=== PATIENT | female | born 1950 | race Caucasian/White ===

== ENCOUNTER 2016-12-28 19:22 | Emergency (ER) | payer OTHER ==
[~2016-12-28] VITALS: Ht 154.9 cm; Wt 72.0 kg
[2016-12-28 19:28] VITALS: BP 121/83; PULSE 85; RESP 16; O2SAT 99
--- NOTE | 2016-12-28 20:28 | ED.REPORT ---
HPI-Abd Pain F 40 and Over Date of Service Dec 28, 2016 ED Provider: Fly Elaine MD Pt is a 66 year old female presenting to the ED complaining of sharp LLQ abdominal pain worsened today after eating lunch. She reports that [place] and began having slight abdominal irritation which has significantly worsened since returning home. Associated symptoms include nausea and intermittent diarrhea. Denies vomiting, fever, any change in bowel habits, dysuria, bloody diarrhea, or any recent sick contacts. She reports that it feels like she has gas. Nursing Notes Stated Complaint: LEFT SIDE ABDOMINAL PAIN/SENT FROM URGENT CARE Chief Complaint: Female Abdominal Pain Nursing Notes Reviewed: Yes Allergies: Coded Allergies: tetracycline (Unverified Allergy, Unknown, 12/28/16) Scheduled Levofloxacin (Levaquin) 500 Mg Tablet 500 MG PO DAILY Metronidazole (Metronidazole) 500 Mg Tablet 500 MG PO TID Scheduled PRN Hydrocodone-Acetaminophen 5-325 mg (Hydrocodone-Acetaminophen 5-325 mg) 1 Each Tablet 1 TABLET PO Q4H PRN PRN For Pain General Time Seen by MD: 20:02 Chief Complaint Abdominal pain Hx Obtained From: Patient Arrived By: Walk-in Sudden in Onset?: No Onset Occurred: 9 - 12 hours ago Symptom Duration: Since onset Progression since Onset: Intermittent Location: : LLQ Quality: Painful Severity: Current: Moderate Severity: Maximum: Severe Recent Healthcare: No recent doctor visit, No recent hospitalization Similar Sx Previous: No Past Medical History Past Medical History Hx of UTI Past Surgical History endoscopy Reports: Hysterectomy, Tonsillectomy Smoking History Never Smoker Social History Alcohol Use: 1-3 per day (A glass of wine or a beer daily) Ambulatory Status Independent Review of Systems Constitutional: Denies: Fever GI: Reports: Abdominal pain, Diarrhea, Nausea, Denies: Hematochezia, Vomiting Female: Denies: Dysuria Complete sys rev & neg: except as marked. Physical Exam Vital Signs Vital Signs (First) Date Time Temp Pulse Resp B/P Pulse Ox O2 Delivery O2 Flow Rate FiO2 12/28/16 19:28 36.6 85 16 121/83 99 Room Air Initial VS: Reviewed Head / Eyes: Atraumatic, Normocephalic, PERRL ENT: Mucous membranes moist, Conjunctiva normal, No scleral icterus Extremities: Vascular intact, Neuro intact, No swelling, No tenderness Skin: Warm, Dry, No cyanosis Neurologic: Alert, Oriented, Nonfocal Psychiatric: Mood/affect normal, Behavior normal, Normal thought content General/Constitutional: Awake, Alert, No acute distress, Well appearing Respiratory / Chest: Breath sounds NL, Breath sounds = bilat, No respiratory distress, No rales, No rhonchi, No wheezing, No stridor Cardiovascular: Heart rate NL, Regular rhythm, Heart sounds NL, No gallop, No murmurs, No rubs Abdomen: Atraumatic, Soft, BS normoactive Tenderness/Guarding/Rebound: Positive: Guarding involuntary, Tender LLQ... ( Moderate), Tender periumbilical (Left) Back: Atraumatic, Inspection NL, No CVA tenderness Interpretation & Diagnostics Lab Results Interpretation Result Diagram: 12/28/16204412/28/162044 Test 12/28/16 20:36 12/28/16 20:45 Urine Color Yellow (YELLOW) Urine Appearance Clear (CLEAR,HAZY) Urine pH 7.5 (5.0-8.0) Urine Specific Pray 1.010 (1.003-1.035) Urine Protein Negativemg/dL (NEG,TRACE) Urine Glucose (UA) Negativemg/dL (NEGATIVE) Urine Ketones Negativemg/dL (NEGATIVE) Urine Occult Blood Negative (NEGATIVE) Urine Nitrite Negative (NEGATIVE) Urine Bilirubin Negative (NEGATIVE) Urine Urobilinogen Normalmg/dL (NORMAL) Urine Leukocyte Esterase Negative (NEGATIVE) Urine RBC 0-2/hpf (0-2) Urine WBC 0-5/hpf (0-5) Urine Epithelial Cells Few/hpf (NONE-MOD) Urine Crystals None seen (NONE SEEN) Urine Bacteria Few/hpf (NONE-FEW) Urine Hyaline Casts None/lpf (NONE) Urine Granular Casts None seen (NONE SEEN) Urine Waxy Casts None seen (NONE SEEN) Urine Red Blood Cell Casts None seen (NONE SEEN) Urine White Blood Cell Casts None seen (NONE SEEN) Urine Mucus None seen (None Seen) Urine Trichomonas None seen (NONE SEEN) Urine Yeast None (NONE SEEN) Urinalysis Comment None Urine Culture Reflexed Not indicated Hold Urine Received (Received) White Blood Count 12.2th/mm3 (3.8-10.1) Red Blood Count 4.58mil/mm3 (3.90-5.20) Hemoglobin 13.9g/dL (12.0-15.6) Hematocrit 41.2% (35.0-46.0) Mean Corpuscular Volume 90.0fL (81-100) Mean Corpuscular Hemoglobin 30.3pg (27.0-35.0) Mean Corpuscular Hemoglobin Concent 33.7% (32.0-37.0) Red Cell Distribution Width 13.3% (12.3-15.4) Platelet Count 268bil/L (150-400) Neutrophils (%) (Auto) 72.4% (40-74) Lymphocytes (%) (Auto) 16.3% (14-46) Monocytes (%) (Auto) 10.5% (4-12) Eosinophils (%) (Auto) 0.4% (0-5) Basophils (%) (Auto) 0.2% (0-3) Sodium Level 139mEq/L (134-144) Potassium Level 4.3mEq/L (3.5-5.2) Chloride Level 101mEq/L (97-108) Carbon Dioxide Level 23mmol/L (18-29) Blood Urea Nitrogen 15mg/dL (8-27) Creatinine 0.80mg/dL (0.57-1.00) Estimat Glomerular Filtration Rate 103mL/min (>59) Glucose Level 107mg/dL (60-99) Calcium Level 8.9mg/dL (8.5-10.1) Magnesium Level 2.0mg/dL (1.6-2.6) Total Bilirubin 0.5mg/dL (0.0-1.2) Aspartate Amino Transf (AST/SGOT) 17U/L (0-50) Alanine Aminotransferase (ALT/SGPT) 16U/L (0-32) Alkaline Phosphatase 50U/L (25-165) Total Protein 6.9g/dL (6.4-8.4) Albumin 3.9g/dL (3.4-5.0) Lipase 52U/L (13-60) CT Abd / Pelvis Interpretation IMPRESSION: 1. Acute diverticulitis as above. No intra-abdominal abscess or pneumoperitoneum to suggest perforation. This finding was discussed with Dr. Elaine at 10:14 PM on 12/28/16. 2. Normal appendix. Dictated by: Esha Moreno M.D. on 12/28/2016 at 22:09 Study type: Abdominal CT IV contrast Interpretation / Wet Read by: Interpret - Radiologist, Discussed w radiologist Re-Eval/Medical Decision Med Decision/Clinical Course Well-appearing healthy 66-year-old with acute diverticulitis. She is able tolerate by mouth's pain is well-controlled in the emergency department. The patient interested in outpatient treatment of possible. We have started her on Levaquin and Flagyl will discharge her home with instructions to return if worse or if not improved in 48 hours Re-Evaluation/Progress #1: Time of Eval: 20:52 Patient Status: Condition improved Re-Evaluation/Progress Note: Performed physical exam and discussed past medical history. Re-Evaluation/Progress #2: Time of Eval: 22:47 Patient Status: Condition improved Re-Evaluation/Progress Note: Discussed CT results and plan for discharge. Pt understands and agrees. Counseled Regarding: Diagnosis, Lab results, Need for follow-up, When/why to return to ED Discharge & Departure Primary Impression: Diverticulitis Diverticulitis site: large intestine Diverticulitis bleeding: without bleeding Diverticulitis complication: without perforation or abscess Qualified Code: K57.32 - Diverticulitis of large intestine without perforation or abscess without bleeding Disposition: Home Discharge Condition All VS Reviewed: Yes Condition: Improved Patient Instructions: Diverticulitis (ED) Additional Instructions: ED evaluation today included interview, exam, labs and CT. Your CT scan today confirmed diverticulitis. We have started levaquin and metronidazole to cover the infection. Take these as prescribed. May use hydrocodone/apap 1-2 every 4 hours as needed for pain. Follow a clear liquid diet until you feel better. Stay away from foods with small seeds which can irritate the diverticulitis, even after you feel better. follow up with primary care in 3-5 days. Return to ED for increasing pain, fevers, or shaking chills, frequent vomiting or if not improved in 48 hours Referrals: Danny Galindo ND (PCP) Soumya Attestation Portions of this note were transcribed by Carleen Barker. I, Dr. Elaine personally performed the history, physical exam and medical decision-making; I reviewed and confirmed the accuracy of the information in the transcribed note. Signed by : Soumya Horner, 12/28/2016 at 2313. copies to: Danny Galindo ND, Donald L MD Dec 28, 2016 20:27 CARLEEN BARKER Dec 28, 2016 20:30
[2016-12-28 21:04] LABS: BASOPHILS % (AUTO) 0.2 % (0-3); EOSINOPHILS % (AUTO) 0.4 % (0-5); MONOCYTES % (AUTO) 10.5 % (4-12); Mean Corpuscular Hemoglobin 30.3 pg (27.0-35.0); NEUTROPHILS % (AUTO) 72.4 % (40-74); Platelet Count 268 bil/L (150-400)
[2016-12-28] MEDS ORDERED: Ondansetron 2 mg/mL 2 mL Inj IVPUSH PRN (21:05)
[2016-12-28] MEDS ORDERED: 0.9% Sodium Chloride 1,000 ML IV ONE (21:05)
[2016-12-28] MEDS: HYDROmorphone 0.5 mg/0.5 mL iSecure Syringe IVPUSH PRN ×2 (21:26→23:10)
[2016-12-28 22:03] LABS: APPEARANCE,URINE CLEAR (CLEAR,HAZY); COLOR,URINE YELLOW (YELLOW)
[2016-12-28 22:04] LABS: OCCULT BLOOD,URINE NEGATIVE (NEGATIVE); PH,URINE 7.5 (5.0-8.0); UROBILINOGEN,URINE NORMAL (NORMAL)
--- NOTE | 2016-12-28 22:18 | DRSVH ---
PROCEDURE: CT ABDOMEN AND PELVIS WITH CONTRAST ([id number]) INDICATIONS: llq abd pain TECHNIQUE: After the administration of intravenous contrast, 5 mm thick sections acquired from the diaphragm to the symphysis. 5 mm coronal and sagittal reformats were acquired. For radiation dose reduction, the following was used: automated exposure control, adjustment of mA and/or kV according to patient siz e. COMPARISON: None. FINDINGS: Image quality: Excellent. ABDOMEN: Lung bases: Lung bases are clear. Heart size is normal. Solid organs: Liver and spleen are normal in size and enhancement. Gallbladder is is unremarkable. Biliary system is non dilated. Pancreas enhances normally. No adrenal nodules. Kidneys demonstrat e normal size and enhancement, without hydronephrosis. Peritoneum and bowel: Bowel loops demonstrate normal overall wall thickness and caliber. There are extensive diverticular outpouchings throughout the sigmoid colon. Focal circumferential mucosal thick ening and pericolonic fat stranding is present within the superior sigmoid colon. No discrete fluid c ollection to suggest abscess or pneumoperitoneum to suggest perforation. The appendix is thin walled and gas filled. No free fluid or air. Nodes and vessels: No retroperitoneal or mesenteric adenopathy by size criteria. Aorta and inferior vena cava are normal in size. Miscellaneous: No ventral hernias. PELVIS: Genitourinary: Bladder wall thickness is normal. Miscellaneous: No inguinal hernias or adenopathy. Bones: No suspicious bony lesions. A probable bone island is present within the right femoral head. Severe degenerative changes are present throughout the thoracolumbar spine. There is a moderate super ior endplate depression at T11. The acuity of this finding is unknown without prior comparisons. IMPRESSION: 1. Acute diverticulitis as above. No intra-abdominal abscess or pneumoperitoneum to suggest perforati on. This finding was discussed with Dr. Elaine at 10:14 PM on 12/28/16. 2. Normal appendix. 2. Normal appendix. Dictated by: Esha Moreno M.D. on 12/28/2016 at 22:09 Approved by: Esha Moreno M.D. on 12/28/2016 at 22:17
[2016-12-28] MEDS ORDERED: levoFLOXacin 500 mg Tablet PO ONE (22:50)
[2016-12-28] MEDS ORDERED: _HYDROcodone/APAP 5-325 mg Tablet PO PRN (22:50)
[2016-12-28] MEDS ORDERED: HYDR-4003 PO (23:11)
[2016-12-28] MEDS ORDERED: LEVO500T16 PO (23:11)
[2016-12-28] MEDS ORDERED: METR500T19 PO (23:11)
[2016-12-28 23:21] VITALS: BP 126/76; PULSE 72; RESP 16; O2SAT 98
[2016-12-28 23:22] VITALS: BP 126/76; PULSE 72; RESP 16; O2SAT 98
== END 2016-12-28 23:22 | disposition home or self-care (01) ==
LOC: SED 19:22
DX: K57.32 Diverticulitis of large intestine without perforation or abscess without bleeding (principal); Z87.440 Personal history of urinary (tract) infections; Z88.1 Allergy status to other antibiotic agents
CPT/HCPCS: 36415; 74177; 80053; 81000; 83690; 83735; 85025; 96374; 96375; 96376; 99285; J1170; J2405; J7030; Q9967